=== PATIENT | female | born 1960 | race American Indian/Alaskan Native ===

== ENCOUNTER 2017-04-27 22:08 | Observation (INO) | payer OTHER ==
--- NOTE | 2017-04-27 22:40 | ED PDOC ---
HPI:STROKE - Time Time: 22:37 - Historian Historian: Patient - Chief Complaint Chief Complaint: Numbness (Numbness to face and right upper ext at 9:30 PM tonight. Checked BP and found to be elevated. Denies headache or chest pain. Noticed improvement in sxs since arrival to ED) - Onset Date: 04/27/17 Time: 21:30 - Timing Timing: Improved - Location Locate right:: Upper extremity - Radiation Radiation: None - Severity of pain Maximum severity:: Mild Pain Scale:: 0 Severity Current: Mild Pain Scale:: 0 - Associated Symptoms Associated symptoms:: Numbness - Exacerbated by Exacerbated by:: Nothing - Relieved by Relieved by:: Nothing - TPA Positive for Contraindication: Yes Reason tPA is not being Administered: Sxs improving NIHSS Stroke Scale - How Severe is the Stroke Level of Consciousness: 0=Alert LOC to Questions: 0=Both comments correct LOC to commands: 0=Obeys both correctly Best Gaze: 0=Normal Visual: 0=No visual loss Facial: 0=Normal Motor Arm - Left: 0=No drift Motor Arm - Right: 0=No drift Motor Leg - Left: 0=No drift Motor Leg - Right: 0=No drift Limb Ataxia: 0=Absent Sensory: 1=Mild to moderate loss Best Language: 0=No aphasia Dysarthia: 0=Normal articulation Extinction & Inattention (Neglect): 0=Normal, no object Score: 1 rTPA Inclusion/Exclusion - Refusal of Treatment Patient Refused Treatment: No - Inclusion Criteria for Altepase Patient is 18 years or Older: Yes The Clinical Diagnosis of Ischemic Stroke That is Causing a Potentially Disabling Neurological Deficit: Yes Time of Onset is Well Established to be Less Than 270 Minute Before Treatment Would Begin: Yes Risk/Benefit Discussed With Patient/Family Member Present: No Past Medical History Vital Signs: Last Vital Signs Temp 97.9 F 04/27/17 22:23 Pulse 97 H 04/27/17 22:23 Resp 16 04/27/17 22:23 BP 137/82 04/27/17 22:23 Pulse Ox 100 04/27/17 22:23 - Medical History PMH: HTN - Family History Family History: States: Unknown Family Hx - Allergies Allergies/Adverse Reactions: Allergies Allergy/AdvReac Type Severity Reaction Status Date / Time No Known Allergies Allergy Verified 04/27/17 22:28 Review of Systems ROS Statement: Except As Marked, All Systems Reviewed And Found Negative Neurological: Positive for: Numbness Physical Exam - Reviewed Nursing Documentation Reviewed: Yes Vital Signs Reviewed: Yes - Physical Exam Appears: Positive for: Non-toxic, No Acute Distress Head Exam: Positive for: ATRAUMATIC, NORMAL INSPECTION, NORMOCEPHALIC Skin: Positive for: Normal Color, Warm, DRY Eye Exam: Positive for: EOMI, Normal appearance, PERRL ENT: Positive for: Normal ENT Inspection Neck: Positive for: Normal, Painless ROM Cardiovascular/Chest: Positive for: Regular Rate, Rhythm Respiratory: Positive for: CNT, Normal Breath Sounds Gastrointestinal/Abdominal: Positive for: Normal Exam, Bowel Sounds, Soft Back: Positive for: Normal Inspection Extremity: Positive for: Normal ROM Neurologic/Psych: Positive for: Alert, Oriented, Motor/Sensory Deficits (Mildly decreased sensation right upper ext.) - Laboratory Results Result Diagrams: 04/27/17 23:12 04/27/17 23:12 - ECG O2 Sat by Pulse Oximetry: 100 Disposition - Clinical Impression Clinical Impression: TIA (transient ischemic attack) - Patient ED Disposition Is Patient to be Admitted: Yes - Disposition Disposition Time: 23:55 Condition: FAIR - Pt Status Changed To: Hospital Disposition Of: Observation - POA Present On Arrival: None
[2017-04-27 23:23] LABS: BASO % 0.4 % (0.0-2.0); EOS # 0.1 K/uL (0.0-0.7); EOS % 1.6 % (0.0-4.0); HEMATOCRIT 38.4 % (34.0-47.0); LYMPH # 3.2 K/uL (1.0-4.3); LYMPH % 42.6 % (20.0-40.0); MEAN CELL VOLUME 87.9 fl (81.0-99.0); MEAN CORPUSCULAR HEMOGLOBIN 29.2 pg (27.0-31.0); MEAN CORPUSCULAR HGB CONC 33.2 g/dL (33.0-37.0); MEAN PLATELET VOLUME 7.8 fl (7.2-11.7); MONO # 0.7 K/uL (0.0-0.8); NEUT # 3.4 K/uL (1.8-7.0); NEUT % 46.4 % (50.0-75.0); RED CELL DISTRIBUTION WIDTH 12.9 % (11.5-14.5); WHITE BLOOD COUNT 7.4 K/uL (4.8-10.8)
[2017-04-27 23:46] LABS: ALB/GLOB RATIO 1.3 (1.0-2.1); ALKALINE PHOSPHATASE 114 U/L (38-126); ALT/SGPT 43 U/L (9-52); AST/SGOT 29 U/L (14-36); BILIRUBIN,TOTAL 0.5 mg/dl (0.2-1.3); BLOOD UREA NITROGEN 15 mg/dl (7-17); CARBON DIOXIDE 27 mmol/L (22-30); CHLORIDE 103 mmol/L (98-107); CHOLESTEROL 278 mg/dL (0-199); GFR AFRICAN-AMERICAN > 60; GLUCOSE,RANDOM 103 mg/dL (65-105); POTASSIUM 3.8 MMOL/L (3.6-5.0); SODIUM 140 mmol/l (132-148); TOTAL PROTEIN 7.9 G/DL (6.3-8.2)
[2017-04-28 06:29] LABS: HEMATOCRIT 35.1 % (34.0-47.0); MEAN CELL VOLUME 87.9 fl (81.0-99.0); MEAN CORPUSCULAR HEMOGLOBIN 29.2 pg (27.0-31.0); MEAN CORPUSCULAR HGB CONC 33.2 g/dL (33.0-37.0); RED CELL DISTRIBUTION WIDTH 12.8 % (11.5-14.5); WHITE BLOOD COUNT 6.7 K/uL (4.8-10.8)
[2017-04-28 06:41] LABS: ALB/GLOB RATIO 1.2 (1.0-2.1); ALKALINE PHOSPHATASE 100 U/L (38-126); ALT/SGPT 37 U/L (9-52); AST/SGOT 25 U/L (14-36); BILIRUBIN,TOTAL 0.4 mg/dl (0.2-1.3); BLOOD UREA NITROGEN 16 mg/dl (7-17); CALCIUM 9.3 mg/dL (8.4-10.2); CARBON DIOXIDE 27 mmol/L (22-30); CHLORIDE 105 mmol/L (98-107); GFR AFRICAN-AMERICAN > 60; GLUCOSE,RANDOM 94 mg/dL (65-105); SODIUM 140 mmol/l (132-148); TOTAL PROTEIN 6.7 G/DL (6.3-8.2)
[2017-04-28 06:48] LABS: T4 8.16 ug/dl (5.5-11.0)
[2017-04-28 07:02] LABS: THYROID STIMULATING HORMONE 0.99 mIU/ML (0.46-4.68)
[2017-04-28] MEDS: Enoxaparin 40 mg Syringe SC SCH (08:47)
[2017-04-28] MEDS ORDERED: Patient's Own Med (Olmesartan/Hydrochlorothiazide [Benicar Hct 40-12.5 Mg Tablet] 1 TAB) PO SCH (09:00)
--- NOTE | 2017-04-28 10:06 | CARD ---
APPROVED REPORT EKG Measurement Heart [id number] <Conclusion> Normal sinus rhythm Voltage criteria for left ventricular hypertrophy Abnormal ECG
--- NOTE | 2017-04-28 10:24 | CT ---
PROCEDURE: CT HEAD WITHOUT CONTRAST. HISTORY: code stroke COMPARISON: None available. TECHNIQUE: Axial computed tomography images were obtained through the head/brain without intravenous contrast. Radiation dose: Total exam DLP = 856 mGy-cm. This CT exam was performed using one or more of the following dose reduction techniques: Automated exposure control, adjustment of the mA and/or kV according to patient size, and/or use of iterative reconstruction technique. FINDINGS: HEMORRHAGE: No intracranial hemorrhage. BRAIN: No mass effect or edema. No atrophy or chronic microvascular ischemic changes. VENTRICLES: Unremarkable. No hydrocephalus. CALVARIUM: Unremarkable. PARANASAL SINUSES: Unremarkable as visualized. No significant inflammatory changes. MASTOID AIR CELLS: Unremarkable as visualized. No inflammatory changes. OTHER FINDINGS: None. IMPRESSION: Normal CT of the Head. Follow-up CT or MRI may be performed given clinical history of potential brain infarction.
--- NOTE | 2017-04-28 15:42 | RAD ---
HISTORY: cva COMPARISON: No prior. FINDINGS: LUNGS: No active pulmonary disease. PLEURA: No significant pleural effusion identified, no pneumothorax apparent. CARDIOVASCULAR: Normal. OSSEOUS STRUCTURES: No significant abnormalities. VISUALIZED UPPER ABDOMEN: Normal. OTHER FINDINGS: None. IMPRESSION: No active disease.
--- NOTE | 2017-04-28 17:14 | HP ---
HISTORY OF PRESENT ILLNESS: The patient is a 56-year-old female who was admitted to emergency room because of numbness of right side of the face at about 9:00 last night. She had checked her blood pressure and found it high and then she came to the emergency room because she was worried about having a stroke. She has had recurrent elevations of blood pressure for the past several weeks but did not think much of it. PAST MEDICAL HISTORY: Remarkable for hypertension. FAMILY HISTORY: Remarkable for father who has hypertension. REVIEW OF SYSTEMS: Essentially unremarkable except for elevation of blood pressure. PHYSICAL EXAMINATION VITAL SIGNS: Remarkable for blood pressure of 126/66 down to *------*, pulse of 69, respirations 18. She is afebrile. O2 saturation 100% on room air. SKIN: Fair turgor. HEENT: Pupils equal, reactive to light and accommodation. Mouth shows fair hygiene. JVP is flat. LUNGS: Clear. Breaths normal. HEART: Regular. No murmurs or gallops. ABDOMEN: Soft, nontender. No organomegaly. EXTREMITIES: No edema or cyanosis. CENTRAL NERVOUS SYSTEM: Grossly intact. No gross neuro deficits. LABORATORY DATA: CT scan of the brain official report pending but unofficially shows no acute pathology. EKG: Regular sinus rhythm. Chest x-ray official report is pending. WBC 6.7, hemoglobin 11.7, platelet count of 259,000. Sodium 140, potassium 4.0, BUN of 16, creatinine 1.0. Cholesterol 278, LDL 146, HDL 71. IMPRESSION: Transient ischemic attack, hypertension, hyperlipidemia. PLAN: Neurology evaluation to rule out *------* cerebrovascular accident, would monitor blood pressure closely, place the patient on antilipids, would obtain MRI of the brain and carotid sonogram. If clinically stable and cerebrovascular accident is ruled out and cleared by neurology, we will discharge and follow up as outpatient. Carlos Rincon MD
[2017-04-28 17:39] LABS: FOLATE 6.6 ng/mL
--- NOTE | 2017-04-28 18:06 | CP.PCM.CON ---
History of Present Illness - History of Present Illness History of Present Illness: CONSULTATION DICTATED LEFT SUB CORTICAL ISCHEMIC PROCESS / CERVICAL DISCOGENIC PROCESS EXAM NO LATERLIZING SIGN WORK UP RECOMMENDED Past Patient History - Past Social History Smoking Status: Never Smoked - CARDIAC Hx Cardiac Disorders: Yes (HTN) - PULMONARY Hx Respiratory Disorders: No - NEUROLOGICAL Hx Neurological Disorder: No - HEENT Hx HEENT Problems: No - RENAL Hx Chronic Kidney Disease: No - ENDOCRINE/METABOLIC Hx Endocrine Disorders: No - HEMATOLOGICAL/ONCOLOGICAL Hx Blood Disorders: No Hx AIDS: No Hx Human Immunodeficiency Virus (HIV): No - INTEGUMENTARY Hx Dermatological Problems: No - MUSCULOSKELETAL/RHEUMATOLOGICAL Hx Musculoskeletal Disorders: No Hx Falls: No - GASTROINTESTINAL Hx Gastrointestinal Disorders: No - GENITOURINARY/GYNECOLOGICAL Hx Genitourinary Disorders: No - PSYCHIATRIC Hx Psychophysiologic Disorder: No Hx Substance Use: No - SURGICAL HISTORY Hx Surgeries: No - ANESTHESIA Hx Anesthesia: Yes Hx Anesthesia Reactions: No Hx Malignant Hyperthermia: No Meds Allergies/Adverse Reactions: Allergies Allergy/AdvReac Type Severity Reaction Status Date / Time No Known Allergies Allergy Verified 04/27/17 22:28 - Medications Medications: Current Medications Aspirin (Aspirin) 325 mg PO DAILY [facility] Last Admin: 04/28/17 08:46 Dose: 325 mg Atorvastatin Calcium (Lipitor) 10 mg PO DAILY [facility] Last Admin: 04/28/17 08:47 Dose: 10 mg Clopidogrel Bisulfate (Plavix) 75 mg PO DAILY [facility] Enoxaparin Sodium (Lovenox) 40 mg SC DAILY [facility] PRN Reason: Protocol Last Admin: 04/28/17 08:47 Dose: 40 mg Hydrochlorothiazide (Microzide) 12.5 mg PO DAILY [facility] Last Admin: 04/28/17 08:47 Dose: 12.5 mg Losartan Potassium (Cozaar) 100 mg PO DAILY [facility] Last Admin: 04/28/17 08:47 Dose: 100 mg Results - Vital Signs Recent Vital Signs: Last Vital Signs Temp 98.1 F 04/28/17 16:09 Pulse 67 04/28/17 16:09 Resp 18 04/28/17 16:09 BP 103/66 04/28/17 16:09 Pulse Ox 100 04/28/17 16:09 - Labs Result Diagrams: 04/28/17 05:00 04/28/17 05:00 Labs: Laboratory Results - last 24 hr 04/28/17 04/28/17 04/28/17 00:03 05:00 05:00 WBC 6.7 RBC 3.99 Hgb 11.7 L Hct 35.1 MCV 87.9 MCH 29.2 MCHC 33.2 RDW 12.8 Plt Count 259 Sodium 140 Potassium 4.0 Chloride 105 Carbon Dioxide 27 Anion Gap 12 BUN 16 Creatinine 1.0 Est GFR ( Amer) > 60 Est GFR (Non-Af Amer) 57 Random Glucose 94 Calcium 9.3 Total Bilirubin 0.4 AST 25 ALT 37 Alkaline Phosphatase 100 Total Protein 6.7 Albumin 3.7 Globulin 3.1 Albumin/Globulin Ratio 1.2 Vitamin B12 Folate Thyroxine (T4) 8.16 TSH 3rd Generation 0.99 RPR Blood Type Confirm A POSITIVE 04/28/17 04/28/17 07:46 07:46 WBC RBC Hgb Hct MCV MCH MCHC RDW Plt Count Sodium Potassium Chloride Carbon Dioxide Anion Gap BUN Creatinine Est GFR ( Amer) Est GFR (Non-Af Amer) Random Glucose Calcium Total Bilirubin AST ALT Alkaline Phosphatase Total Protein Albumin Globulin Albumin/Globulin Ratio Vitamin B12 371 Folate 6.6 Thyroxine (T4) TSH 3rd Generation RPR Nonreactive Blood Type Confirm
[2017-04-29 05:29] LABS: HOMOCYSTEINE 14.2 umol/L (<10.4)
--- NOTE | 2017-04-29 05:58 | CON ---
ATTENDING PHYSICIAN: Carlos Rincon MD LOCATION: Room 417, bed 2. REASON FOR CONSULTATION: Transient ischemic attack. CHIEF COMPLAINT: The patient presented to the emergency room with history of facial numbness and right arm numbness. From neurologic point of view, I was called in to evaluate her for further management. HISTORY OF PRESENT ILLNESS: Ms. Isabel Blanton is a 56-year-old right-handed female in usual state of health for the last few days. She has been experiencing facial numbness and right hand numbness come and go, which lasted for about few minutes. For the last 9 days, she has been out of the state and did not get a good sleep. Had been driving back and forth to [place]. She had an episode of facial numbness and right hand numbness which lasted for a few minutes. We checked her blood pressure, which is unusually high. This episode is not associated with headache, visual or bulbar dysfunction. No history of focal weakness. PAST MEDICAL HISTORY: Hypertension and dyslipidemia. ALLERGIES: NO KNOWN ALLERGIES. PERSONAL HISTORY: Denies smoking or alcohol use. PHYSICAL EXAMINATION: VITAL SIGNS: Blood pressure 103/66, mean arterial pressure of 78, respiratory rate 16, and temperature afebrile. NECK: Supple. No carotid bruits. HEART: Sounds are regular. CHEST: Fair air entry. EXTREMITIES: No edema in legs. NEUROLOGICAL EXAMINATION: Mental Status Examination: She is awake, alert, and oriented to person, place, and time. Speech is clear. Naming, repetition, fluency, and comprehension all within normal. Cranial Nerve Examination: Visual field intact. Pupils react, reactive to light. Extraocular movement normal. No nystagmus. No facial sensory deficit. No facial asymmetry. Hearing is normal. Tongue is midline. Good gag. MOTOR EXAMINATION: Outstretched hand with eyes closed symmetric on either side. Deep tendon reflexes; biceps, brachioradialis, triceps are 2+, both knees are 2+, both ankles are 2+. Plantars are downgoing. SENSORY EXAMINATION: Grossly intact. No cortical sensory loss. COORDINATION: [id number] test is normal. Gait is normal. CONCLUSION: Upon reviewing her neurological examination, right arm numbness raised the possibility of possible left subcortical dysfunction. Her facial numbness does not fall in criteria for central origin. Considering a risk factor, this is probably an ischemic process from uncontrolled high blood pressure. Other possible causes of sensory seizures should be ruled out because of her recurrent symptom. However, other possible causes including carpal tunnel syndrome and cervical radiculopathy should be worked up that can be done as an outpatient if all above workup is negative. CAT scan of the brain did not show any acute pathology. BLOOD WORKUP: WBC 6.7, hemoglobin 11.7, hematocrit 35.1, and platelet 259. PT 11.0, INR 1.0, and PTT 29. Sodium 140, potassium 4.0, chloride 105, bicarbonate 27, BUN 16, creatinine 1.0, GFR more than 60, cholesterol 278, LDL 146, HDL 71, TSH 0.99, and RPR nonreactive. The patient should have a carotid Doppler and MRI of the brain. The patient failed with aspirin and I would like her to be on Plavix to bring down the aspirin dose to 81 mg. I agree with statin and angiotensin-receptor blockers. RECOMMENDATIONS AND PLAN: The patient is recommended to have a cardiology consult while she is in the hospital. The patient's condition meanwhile discussed with her as well as her . The patient will be followed closely while she is in the hospital. Michi Madera MD MTDD
--- NOTE | 2017-04-29 07:54 | MRI ---
PROCEDURE: MRI BRAIN WITHOUT CONTRAST HISTORY: stroke Vs mass COMPARISON: Prior head CT dated 04/27/2017. TECHNIQUE: Multiplanar, multisequence MR images of the brain were obtained without intravenous contrast enhancement. FINDINGS: HEMORRHAGE: None DWI: No evidence of an acute or early subacute infarction. BRAIN PARENCHYMA: Minimal chronic microangiopathy type white-matter change are appreciated manifest by limited periventricular and centrum semiovale white matter low white-matter long TR hyperintensities bilaterally. There is no mass effect or cortical edema. There is no suspicious extra-axial fluid collection appreciated. There is no midline shift. No additional suspicious signal abnormality is appreciated above or below the tentorium throughout the macias and white matter structures. VENTRICLES: Unremarkable. No hydrocephalus. CRANIUM: Unremarkable. ORBITS: Grossly unremarkable. PARANASAL SINUSES/MASTOIDS: Limited right sphenoid sinusitis is encountered. VASCULAR SYSTEM: Skull base flow voids intact. OTHER FINDINGS: None. IMPRESSION: No definite acute intracranial findings. 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 Incidental trace right sphenoid sinusitis identified as well delete that.
--- NOTE | 2017-04-29 08:08 | CP.PCM.DIS ---
Provider - Provider Date of Admission: 04/27/17 23:53 Attending physician: Carlos Rincon MD Time Spent in preparation of Discharge (in minutes): 30 Diagnosis - Discharge Diagnosis (1) Hypertension Status: Acute (2) Paresthesia Status: Acute (3) Hyperlipidemia Status: Acute Hospital Course - Lab Results Lab Results: Most Recent Lab Values WBC 6.7 K/uL (4.8-10.8) 04/28/17 05:00 RBC 3.99 Mil/uL (3.80-5.20) 04/28/17 05:00 Hgb 11.7 g/dL (12.0-16.0) L 04/28/17 05:00 Hct 35.1 % (34.0-47.0) 04/28/17 05:00 MCV 87.9 fl (81.0-99.0) 04/28/17 05:00 MCH 29.2 pg (27.0-31.0) 04/28/17 05:00 MCHC 33.2 g/dL (33.0-37.0) 04/28/17 05:00 RDW 12.8 % (11.5-14.5) 04/28/17 05:00 Plt Count 259 K/uL (130-400) 04/28/17 05:00 MPV 7.8 fl (7.2-11.7) 04/27/17 23:12 Neut % (Auto) 46.4 % (50.0-75.0) L 04/27/17 23:12 Lymph % (Auto) 42.6 % (20.0-40.0) H 04/27/17 23:12 Charlton % (Auto) 9.0 % (0.0-10.0) 04/27/17 23:12 Eos % (Auto) 1.6 % (0.0-4.0) 04/27/17 23:12 Baso % (Auto) 0.4 % (0.0-2.0) 04/27/17 23:12 Neut # 3.4 K/uL (1.8-7.0) 04/27/17 23:12 Lymph # 3.2 K/uL (1.0-4.3) 04/27/17 23:12 Charlton # 0.7 K/uL (0.0-0.8) 04/27/17 23:12 Eos # 0.1 K/uL (0.0-0.7) 04/27/17 23:12 Baso # 0.0 K/uL (0.0-0.2) 04/27/17 23:12 PT 11.0 Seconds (9.8-13.1) 04/27/17 23:12 INR 1.0 (0.9-1.2) 04/27/17 23:12 APTT 29.0 Seconds (25.6-37.1) 04/27/17 23:12 Sodium 140 mmol/l (132-148) 04/28/17 05:00 Potassium 4.0 MMOL/L (3.6-5.0) 04/28/17 05:00 Chloride 105 mmol/L (98-107) 04/28/17 05:00 Carbon Dioxide 27 mmol/L (22-30) 04/28/17 05:00 Anion Gap 12 (10-20) 04/28/17 05:00 BUN 16 mg/dl (7-17) 04/28/17 05:00 Creatinine 1.0 mg/dL (0.7-1.2) 04/28/17 05:00 Est GFR ( Amer) > 60 04/28/17 05:00 Est GFR (Non-Af Amer) 57 04/28/17 05:00 POC Glucose (mg/dL) 114 mg/dL (65-110) H 04/27/17 22:59 Random Glucose 94 mg/dL (65-105) 04/28/17 05:00 Hemoglobin A1c 5.1 % (4.2-6.5) 04/27/17 23:12 Calcium 9.3 mg/dL (8.4-10.2) 04/28/17 05:00 Total Bilirubin 0.4 mg/dl (0.2-1.3) 04/28/17 05:00 AST 25 U/L (14-36) 04/28/17 05:00 ALT 37 U/L (9-52) 04/28/17 05:00 Alkaline Phosphatase 100 U/L (38-126) 04/28/17 05:00 Troponin I < 0.0120 ng/mL (0.00-0.120) 04/27/17 23:12 Total Protein 6.7 G/DL (6.3-8.2) 04/28/17 05:00 Albumin 3.7 g/dL (3.5-5.0) 04/28/17 05:00 Globulin 3.1 gm/dL (2.2-3.9) 04/28/17 05:00 Albumin/Globulin Ratio 1.2 (1.0-2.1) 04/28/17 05:00 Triglycerides 72 mg/DL (0-149) 04/27/17 23:12 Cholesterol 278 mg/dL (0-199) H 04/27/17 23:12 LDL Cholesterol Direct 146 mg/dL (0-129) H 04/27/17 23:12 HDL Cholesterol 71 MG/DL (30-70) H 04/27/17 23:12 Vitamin B12 371 pg/mL (239-931) 04/28/17 07:46 Folate 6.6 ng/mL 04/28/17 07:46 Homocysteine 14.2 umol/L ( <10.4) H 04/28/17 07:46 Thyroxine (T4) 8.16 ug/dl (5.5-11.0) 04/28/17 05:00 TSH 3rd Generation 0.99 mIU/ML (0.46-4.68) 04/28/17 05:00 RPR Nonreactive (NONREACTIVE) 04/28/17 07:46 Blood Type A POSITIVE 04/27/17 23:12 Blood Type Confirm A POSITIVE 04/28/17 00:03 Antibody Screen Negative 04/27/17 23:12 BBK History Checked No verified bt 04/27/17 23:12 - Hospital Course Hospital Course: NO RECURRENCE OF PARESTHESIAS BP CONTROLLED MRI OF BRAIN-UNREMARKABLE CAROTID DOPPLER PENDING--WILL SCHEDULE OUTPT Discharge Exam - Head Exam Head Exam: ATRAUMATIC, NORMAL INSPECTION, NORMOCEPHALIC - Eye Exam Eye Exam: EOMI, Normal appearance, PERRL Pupil Exam: NORMAL ACCOMODATION, PERRL - GI/Abdominal Exam GI & Abdominal Exam: Normal Bowel Sounds - Rectal Exam Rectal Exam: NORMAL INSPECTION - Neurological Exam Neurological exam: Alert, CN II-XII Intact, Normal Gait, Oriented x3, Reflexes Normal - Psychiatric Exam Psychiatric exam: Normal Affect, Normal Mood - Skin Skin Exam: Dry, Intact, Normal Color, Warm Discharge Plan - Follow Up Plan Condition: FAIR Disposition: HOME/ ROUTINE Patient education suggested?: Yes Additional Instructions: DISHARGE TODAY FOLLOW UP WITH PMD AND NEUROLOGIST OUTPT
[2017-04-29 08:24] VITALS: RESP 18; TEMP 98.2; O2SAT 99
[2017-04-29] MEDS: Enoxaparin 40 mg Syringe SC SCH ×2 (08:59→09:14)
[2017-04-29 09:00] VITALS: BP 105/66; PULSE 67
--- NOTE | 2017-04-30 08:38 | EEG ---
ELECTROENCEPHALOGRAM REPORT This is a 16-channel electroencephalogram of an awake and drowsy adult. During the study, photic stimulation was performed and hyperventilation was not performed. The resting electroencephalogram consist of 30 to 40 microvolt, 5 to 6 hertz theta activities superimposed with 2 to 3 hertz of delta activity seen at parietal and occipital leads. There is evidence of sleep spindle activities superimposed with K complexes noted from the beginning, which is consistent with stage II sleep. This sleep is continuously noted from the beginning with her leading into stage III sleep. IMPRESSION: This is an abnormal electroencephalogram because of persistent slowing throughout. The record does show bilateral cerebral dysfunction. However,the study showed most of the time N2 sleep from the beginning to the end. If clinically indicated, repeat the study or extended hour ambulatory electroencephalogram, which can be done as an outpatient. Michi Madera MD [email or web address]
--- NOTE | 2017-05-01 13:12 | PQF GENQUE ---
Dr. Rincon pt was admitted with hypertension, hyperlipidemia and paresthesia. What is the principal diagnosis for this case? This form is a permanent part of the medical record Clarification of your documentation is requested to better reflect the severity of illness and intensity of treatment of your patient. Indicators present [] Specify: [] [] Specify: [] [] Specify: [] [] Specify: [] Location in the medical record that reflects the above clinical findings: [] Treatment Provided: [] PHYSICIAN'S RESPONSE Based on your medical judgment of the clinical indicators outlined above please clarify the following: [] Practitioner response [] If unable to determine, please check the box, sign and date. Present On Admission (POA) Indicator: [] Present at the time of admission [] Not present at the time of admission [] Clinically Undetermined In responding to this query, please exercise your independent professional judgment. The fact that a question is asked does not imply that any particular answer is desired or expected. Thank you for your clarification on this documentation. If you have any questions please call:[ ] * Thank you, [ ]Stephania Brito fire[employer] locom[employer]
== END 2017-04-29 11:03 | disposition home or self-care (01) ==
LOC: H.ER 22:08 → H.ERHOLD 23:53 → H.TEL 04-28 01:51 → OBSVTOIN 04-28 22:50 → INTOOBSV 04-28 22:50
PROVIDERS: ADMIT Internal Medicine Pulmonary Disease; ATTEND Internal Medicine Pulmonary Disease
DX: R20.9 Unspecified disturbances of skin sensation (principal); I10 Essential (primary) hypertension; E78.5 Hyperlipidemia, unspecified